=== PATIENT | male | born 1960 | race Caucasian/White ===

== ENCOUNTER 2025-01-23 13:25 | Emergency (ER) | payer SELFPAY ==
[2025-01-23] VITALS (54 sets, daily range): BP systolic 127–168; BP diastolic 84–108; PULSE 84–123; TEMP 36.8; O2SAT 88–100; BMI 27.4
--- NOTE | 2025-01-23 13:45 | ECG_ITS ---
The [facility] Test Date: 2025-01-23 Pat Name: TRU MILLER Department: Room: - Gender: Male Group Teacher: : 1960 Requested By: [id number] Order Number: [id number] Reading MD: MILES KIM M.D. Measurements Intervals [place] Rate: 112 P: 81 MA: 136 QRS: 13 QRSD: 122 T: 76 QT: 354 QTc: 421 Interpretive Statements 1120 Sinus tachycardia 2450 Right bundle branch block 9150 abnormal ECG No previous ECG available for comparison Electronically Signed On 01-23-2025 18:32:13 EDT by MILES KIM M.D.
--- NOTE | 2025-01-23 13:45 | CT_ITS ---
The [address] [address] Patient Name: TRU MILLER MRN: [facility]:[id number] date: 1960 Sex: M Assigned Patient Location: ER Current Patient Location: ER Accession/Order Number: [id number] Exam Date: 01/23/2025 14:40 Report Date: 01/23/2025 14:46 At the request of: TOD DONIS MD Procedure: CT cervical spine wo con CT BRAIN WITHOUT CONTRAST: CLINICAL HISTORY: seizure, head injury COMPARISON: None TECHNIQUE: Contiguous axial unenhanced images were obtained through the brain. This CT exam was performed using one or more following dose reduction techniques: Automated exposure control, adjustment of the mA and/or kV according to patient size, or use of iterative reconstruction technique. FINDINGS: There is no evidence of midline shift, intra or extra-axial fluid collection, hemorrhage or CT evidence of stroke. A partially calcified hyperdense extra-axial mass is seen involving the left anterior parafalcine region measuring approximately 3.0 x 1.9 x 3.8 cm. There is associated vasogenic edema involving the left frontal lobe no significant midline shift or transtentorial herniation. There is adjacent craniotomy changes. Posterior fossa appears unremarkable. Visualized intraorbital contents appear unremarkable. Visualized paranasal sinuses are clear. The surrounding soft tissues are normal. CT/CT cervical spine wo con IMPRESSION: A PARTIALLY CALCIFIED HYPERDENSE EXTRA-AXIAL MASS IS SEEN INVOLVING THE LEFT ANTERIOR PARAFALCINE REGION MEASURING 3.0 X 1.9 X 3.8 CM. THERE IS ASSOCIATED ADJACENT CRANIOTOMY CHANGES WELL VASOGENIC EDEMA INVOLVING THE LEFT FRONTAL LOBE. FINDING LIKELY REPRESENTS A MENINGIOMA BUT CORRELATION WITH PREVIOUSLY PRESUMED SURGICAL DIAGNOSIS GIVEN THE ADJACENT CRANIOTOMY CHANGES ARE RECOMMENDED. CT CERVICAL SPINE WITHOUT CONTRAST WITH 3D RECONSTRUCTIONS: COMPARISON: None TECHNIQUE: Spiral axial unenhanced images were obtained through the cervical spine. Sagittal, coronal and 3D volume-rendered reconstructions were also reviewed. This CT exam was performed using one or more following dose reduction techniques: Automated exposure control, adjustment of the mA and/or kV according to patient size, or use of iterative reconstruction technique. FINDINGS: No fracture. Vertebral body heights appear maintained. Mild endplate and facet joint degenerative changes without significant disc height loss. No prevertebral soft tissue swelling. Visualized lung apices are clear. IMPRESSION: NO CERVICAL SPINE FRACTURE Impression dictated by: Evans Walker Jr., D.O. 01/23/2025 2:46 PM Dictation Location: [place] [address] Electronically authenticated by: [id number] Y Date: 01/23/2025 14:46
--- NOTE | 2025-01-23 13:45 | CT_ITS ---
The [address] [address] Patient Name: TRU MILLER MRN: [facility]:[id number] date: 1960 Sex: M Assigned Patient Location: ER Current Patient Location: ER Accession/Order Number: [id number] Exam Date: 01/23/2025 14:40 Report Date: 01/23/2025 14:46 At the request of: TOD DONIS MD Procedure: CT cervical spine wo con CT BRAIN WITHOUT CONTRAST: CLINICAL HISTORY: seizure, head injury COMPARISON: None TECHNIQUE: Contiguous axial unenhanced images were obtained through the brain. This CT exam was performed using one or more following dose reduction techniques: Automated exposure control, adjustment of the mA and/or kV according to patient size, or use of iterative reconstruction technique. FINDINGS: There is no evidence of midline shift, intra or extra-axial fluid collection, hemorrhage or CT evidence of stroke. A partially calcified hyperdense extra-axial mass is seen involving the left anterior parafalcine region measuring approximately 3.0 x 1.9 x 3.8 cm. There is associated vasogenic edema involving the left frontal lobe no significant midline shift or transtentorial herniation. There is adjacent craniotomy changes. Posterior fossa appears unremarkable. Visualized intraorbital contents appear unremarkable. Visualized paranasal sinuses are clear. The surrounding soft tissues are normal. CT/CT head/brain wo con IMPRESSION: A PARTIALLY CALCIFIED HYPERDENSE EXTRA-AXIAL MASS IS SEEN INVOLVING THE LEFT ANTERIOR PARAFALCINE REGION MEASURING 3.0 X 1.9 X 3.8 CM. THERE IS ASSOCIATED ADJACENT CRANIOTOMY CHANGES WELL VASOGENIC EDEMA INVOLVING THE LEFT FRONTAL LOBE. FINDING LIKELY REPRESENTS A MENINGIOMA BUT CORRELATION WITH PREVIOUSLY PRESUMED SURGICAL DIAGNOSIS GIVEN THE ADJACENT CRANIOTOMY CHANGES ARE RECOMMENDED. CT CERVICAL SPINE WITHOUT CONTRAST WITH 3D RECONSTRUCTIONS: COMPARISON: None TECHNIQUE: Spiral axial unenhanced images were obtained through the cervical spine. Sagittal, coronal and 3D volume-rendered reconstructions were also reviewed. This CT exam was performed using one or more following dose reduction techniques: Automated exposure control, adjustment of the mA and/or kV according to patient size, or use of iterative reconstruction technique. FINDINGS: No fracture. Vertebral body heights appear maintained. Mild endplate and facet joint degenerative changes without significant disc height loss. No prevertebral soft tissue swelling. Visualized lung apices are clear. IMPRESSION: NO CERVICAL SPINE FRACTURE Impression dictated by: Evans Walker Jr., D.O. 01/23/2025 2:46 PM Dictation Location: [place] [address] Electronically authenticated by: [id number] Y Date: 01/23/2025 14:46
[2025-01-23 13:57] LABS: Hematocrit 48.2 % (42.0-54.0); Hemoglobin 15.9 g/dL (14.0-18.0); Immature Granulocytes Abs Auto 0.05 10^3/uL (0.00-0.03); Immature Granulocytes Pct Auto 0.6 % (0.0-0.5); Lymphocytes Absolute Auto 1.9 10^3/uL (1.2-3.8); Mean Corpuscular HGB Conc 33.0 g/dL (29.9-35.2); Mean Corpuscular Hemoglobin 29.9 pg (25.9-34.0); Mean Corpuscular Volume 90.6 fL (80.0-94.0); Platelet Count 198 10^3/uL (150-450); Red Blood Count 5.32 10^6/uL (4.70-6.10); White Blood Count 8.3 10^3/uL (4.0-11.0)
[2025-01-23 14:12] LABS: Anion Gap 18.2; Blood Urea Nitrogen 16.0 mg/dL (7.0-18.0); Calcium 9.3 mg/dL (8.5-10.1); Carbon Dioxide 24.9 mmol/L (21.0-32.0); Chloride 99 mmol/L (98-107); Estimated GFR (African America >60 (>=60 mL/min/1.73m^2); Estimated GFR (Non-African Ame >60 (>=60 mL/min/1.73m^2); Glucose 276 mg/dL (74-106); Potassium 4.1 mmol/L (3.5-5.1); Sodium 138 mmol/L (136-145)
--- NOTE | 2025-01-23 14:45 | XR_ITS ---
The [address] [address] Patient Name: TUR MILLER MRN: [id number] date: 1960 Sex: M Assigned Patient Location: ER Current Patient Location: ED.MAIN Accession/Order Number: [id number] Exam Date: 01/23/2025 15:39 Report Date: 01/23/2025 15:40 At the request of: TOD DONIS MD Procedure: XR shoulder RT min 2V RIGHT SHOULDER - - 3 views CLINICAL HISTORY: pain, fall COMPARISON: None FINDINGS: There is a mildly displaced fracture involving the distal aspect of the right clavicle. Glenohumeral joint appears intact. XR/XR shoulder RT min 2V IMPRESSION: MILDLY DISPLACED FRACTURE DISTAL ASPECT OF THE RIGHT CLAVICLE. Impression dictated by: Evans Walker Jr., DArabellaOArabella 01/23/2025 3:40 PM Dictation Location: [place] [address] Electronically authenticated by: [id number] Y Date: 01/23/2025 15:40
--- NOTE | 2025-01-23 14:45 | XR_ITS ---
The [place] [id number] Patient Name: TRU MILLER MRN: [id number] date: 1960 Sex: M Assigned Patient Location: ER Current Patient Location: ED.MAIN Accession/Order Number: [id number] Exam Date: 01/23/2025 15:37 Report Date: 01/23/2025 15:39 At the request of: TOD DONIS MD Procedure: XR chest 1V Single view chest: CLINICAL HISTORY: shortness of breath COMPARISON: None FINDINGS: The heart is normal in size. The lungs demonstrate mild interstitial changes without consolidation. The pulmonary vasculature is normal. Mediastinum and hilar regions are unremarkable. No pleural effusions are seen. Visualized bones are intact. XR/XR chest 1V IMPRESSION: MILD INTERSTITIAL CHANGES. NO CONSOLIDATION TO SUGGEST PNEUMONIA. Impression dictated by: Evans Walker Jr., D.O. 01/23/2025 3:39 PM Dictation Location: [place] [address] Electronically authenticated by: [id number] Y Date: 01/23/2025 15:39
[2025-01-23] MEDS: METHYLPREDNISOLONE SOD SUCC PF 125 MG/2 ML VIAL IVP (14:50)
[2025-01-23] MEDS: IPRATROPIUM/ALBUTEROL SULFATE 3 ML AMPUL.NEB IH (14:57)
--- NOTE | 2025-01-23 16:24 | ED.GENADUL1 ---
HPI HPI - General Adult General Chief complaint: Seizure Stated complaint: SEIZURE Time Seen by Provider: 01/23/25 13:44 Source: patient Mode of arrival: ambulance Limitations: no limitations History of Present Illness HPI narrative: 64-year-old male to the emergency department with chief complaint of seizure. Patient reports that he was having a normal day and was at work at [employer]. He had no preceding symptoms but was witnessed to have a generalized seizure by his coworkers. He did hit the ground. He reports pain in his right shoulder. He did hit his head. No blood thinners. Patient reports that he has a history of a brain mass status postcraniotomy and excision. This was in 2019 at [facility]. He has otherwise been at his baseline health. He denies any vision changes, numbness, weakness, tingling, difficulty walking. Related Data Home Medications �Medication �Instructions �Recorded �Confirmed No Known Home Medications 01/23/25 01/23/25 Allergies Allergy/AdvReac Type Severity Reaction Status Date / Time Unable to Assess Allergy Verified 01/23/25 13:34 Review of Systems ROS Status of ROS 10 or more systems reviewed and unremarkable except as noted in history and below PFSH PFSH Social History Little interest or pleasure in doing things: not at all Feeling down, depressed, or hopeless: not at all Exam Narrative Exam Narrative: Primary Survey Airway Intact Lung sounds clear and equal bilaterally Pulses full and equal to femoral, radial, and dorsalis pedis bilaterally Heart regular rate and rhythm Skin warm, dry, pink GCS 15 Movement and sensation intact to all extremities. Patient Fully Exposed. Tenderness over the right shoulder with some appreciable swelling. Abrasion to the right frontal region. Secondary Survey General: GCS 15; Alert HEENT: Head atraumatic; Facial bones stable; Eyes normal inspection, Pupils round, 4-2mm blt; No evidence of oropharyngeal trauma; No blood in the nares or septal hematoma; Tympanic Membranes intact, no hemotympanum or drainage Neck: Normal inspection; no midline cervical tenderness; No tracheal deviation; No JVD Resp: Normal breath sounds, no wheeze or crackles; No chest wall tenderness, crepitus, or subcutaneous emphysema; No visible evidence of chest wall trauma; Chest rise symmetric; No respiratory distress Heart: Heart rate and rhythm regular; Carotid, radial, femoral, dorsalis pedis pulses +2 and equal bilaterally; No Murmurs Abdomen: Soft; Non-tender No ecchymosis or visible wounds to abdominal wall; No distention, guarding, rigidity, or rebound; Pelvis stable, no pain on compression MSK: Right shoulder/clavicle tenderness, otherwise all major joints with normal ROM. No deformities. No bony tenderness. No tenderness or step-offs to palpation of thoracic or lumbar spine; No ecchymosis or wounds to upper or lower back Neuro: Alert and oriented; Sensation intact and symmetric bilaterally; muscle strengths symmetric bilaterally in the upper and lower extremities. Skin: Color normal; No rash; Warm; Dry Constitutional Vital Signs, click to edit/add: Last Vital Signs Temp 98.2 F 01/23/25 13:28 Pulse 100 H 01/23/25 15:20 Resp 24 H 01/23/25 15:20 BP 150/93 H 01/23/25 15:00 Pulse Ox 94 L 01/23/25 15:20 O2 Del Method Nasal Cannula 01/23/25 14:57 O2 Flow Rate 1.5 01/23/25 14:57 Course Vital Signs Vital signs: Vital Signs Temperature 98.2 F 01/23/25 13:28 Pulse Rate 123 H 01/23/25 13:28 Respiratory Rate 24 H 01/23/25 13:28 Blood Pressure 150/101 H 01/23/25 13:28 Pulse Oximetry 94 L 01/23/25 13:28 Temperature 98.2 F 01/23/25 13:28 Pulse Rate 100 H 01/23/25 15:20 Respiratory Rate 24 H 01/23/25 15:20 Blood Pressure 150/93 H 01/23/25 15:00 Pulse Oximetry 94 L 01/23/25 15:20 Oxygen Delivery Method Nasal Cannula 01/23/25 14:57 Oxygen Delivery Flow Rate 1.5 01/23/25 14:57 Medical Decision Making MDM Narrative Medical decision making narrative: 64-year-old male to the emergency department with chief complaint of seizure. He is hypoxic, otherwise stable vitals. The patient is afebrile. He is mildly tachycardic. CT head and cervical spine were ordered. X-ray imaging of the shoulder and chest. Basic labs. Patient agrees with this plan. He does have a distal clavicle fracture. He is placed in a sling. Pain medication was given. CT head: He does have an extra-axial mass with some vasogenic edema. CT cervical spine without acute findings. Chest x-ray without acute findings. Lab work was reviewed and noted. Patient remained at 1.5 L nasal cannula. He does have a history of COPD. He reports mild cough and some shortness of breath recently. DuoNeb treatment was given and he improved. He remains on the 1.5 L. Sign Medrol given. Likely mild COPD exacerbation. Case was discussed with Dr. Vigil at [facility]. He recommended transfer for EEG and MRI. Case was discussed with the hospitalist. Patient was accepted to [facility]. Any given at her request. Medical Records Medical records reviewed: Yes I reviewed the patient's medical records Lab Data Lab results reviewed: Yes I reviewed the patient's lab results Labs: Lab Results 01/23/25 Range/Units 13:36 WBC 8.3 (4.0-11.0) 10^3/uL RBC 5.32 (4.70-6.10) 10^6/uL Hgb 15.9 (14.0-18.0) g/dL Hct 48.2 (42.0-54.0) % MCV 90.6 (80.0-94.0) fL MCH 29.9 (25.9-34.0) pg MCHC 33.0 (29.9-35.2) g/dL RDW 12.6 (11.0-15.0) % Plt Count 198 (150-450) 10^3/uL MPV 11.0 (9.5-13.5) fL Neut % (Auto) 69.1 (43.0-75.0) % Lymph % (Auto) 22.3 (20.5-60.0) % [place] % (Auto) 6.9 (1.7-12.0) % Eos % (Auto) 0.6 L (0.9-7.0) % Baso % (Auto) 0.5 (0.2-2.0) % Neut # (Auto) 5.8 (1.4-6.5) 10^3/uL Lymph # (Auto) 1.9 (1.2-3.8) 10^3/uL [place] # (Auto) 0.6 (0.3-0.8) 10^3/uL Eos # (Auto) 0.1 (0.0-0.7) 10^3/uL Baso # (Auto) 0.0 (0.0-0.1) 10^3/uL Abs Immat Gran (auto) 0.05 H (0.00-0.03) 10^3/uL Imm/Tot Granulo (auto) 0.6 H (0.0-0.5) % Sodium 138 (136-145) mmol/L Potassium 4.1 (3.5-5.1) mmol/L Chloride 99 (98-107) mmol/L Carbon Dioxide 24.9 (21.0-32.0) mmol/L Anion Gap 18.2 BUN 16.0 (7.0-18.0) mg/dL Creatinine 1.13 (0.70-1.30) mg/dL Est GFR ( Amer) >60 (>=60 mL/min/1.73m^2) Est GFR (Non-Af Amer) >60 (>=60 mL/min/1.73m^2) BUN/Creatinine Ratio 14.2 Glucose 276 H (74-106) mg/dL Calcium 9.3 (8.5-10.1) mg/dL Troponin I High Sens 5.4 (4.0-76.1) pg/mL Imaging Data CT scan - head: Attestation: I have reviewed the pertinent imaging results. Radiologist's impression: ITS Impressions Cervical Spine CT 01/23/25 13:45 IMPRESSION: A PARTIALLY CALCIFIED HYPERDENSE EXTRA-AXIAL MASS IS SEEN INVOLVING THE LEFT ANTERIOR PARAFALCINE REGION MEASURING 3.0 X 1.9 X 3.8 CM. THERE IS ASSOCIATED ADJACENT CRANIOTOMY CHANGES WELL VASOGENIC EDEMA INVOLVING THE LEFT FRONTAL LOBE. FINDING LIKELY REPRESENTS A MENINGIOMA BUT CORRELATION WITH PREVIOUSLY PRESUMED SURGICAL DIAGNOSIS GIVEN THE ADJACENT CRANIOTOMY CHANGES ARE RECOMMENDED. CT CERVICAL SPINE WITHOUT CONTRAST WITH 3D RECONSTRUCTIONS: COMPARISON: None TECHNIQUE: Spiral axial unenhanced images were obtained through the cervical spine. Sagittal, coronal and 3D volume-rendered reconstructions were also reviewed. This CT exam was performed using one or more following dose reduction techniques: Automated exposure control, adjustment of the mA and/or kV according to patient size, or use of iterative reconstruction technique. FINDINGS: No fracture. Vertebral body heights appear maintained. Mild endplate and facet joint degenerative changes without significant disc height loss. No prevertebral soft tissue swelling. Visualized lung apices are clear. IMPRESSION: NO CERVICAL SPINE FRACTURE Impression dictated by: Evans Walker Jr., D.O. 01/23/2025 2:46 PM Dictation Location: [employer] Electronically authenticated by: [id number] Y Date: 01/23/2025 14:[address] 01/23/25 13:45 IMPRESSION: A PARTIALLY CALCIFIED HYPERDENSE EXTRA-AXIAL MASS IS SEEN INVOLVING THE LEFT ANTERIOR PARAFALCINE REGION MEASURING 3.0 X 1.9 X 3.8 CM. THERE IS ASSOCIATED ADJACENT CRANIOTOMY CHANGES WELL VASOGENIC EDEMA INVOLVING THE LEFT FRONTAL LOBE. FINDING LIKELY REPRESENTS A MENINGIOMA BUT CORRELATION WITH PREVIOUSLY PRESUMED SURGICAL DIAGNOSIS GIVEN THE ADJACENT CRANIOTOMY CHANGES ARE RECOMMENDED. CT CERVICAL SPINE WITHOUT CONTRAST WITH 3D RECONSTRUCTIONS: COMPARISON: None TECHNIQUE: Spiral axial unenhanced images were obtained through the cervical spine. Sagittal, coronal and 3D volume-rendered reconstructions were also reviewed. This CT exam was performed using one or more following dose reduction techniques: Automated exposure control, adjustment of the mA and/or kV according to patient size, or use of iterative reconstruction technique. FINDINGS: No fracture. Vertebral body heights appear maintained. Mild endplate and facet joint degenerative changes without significant disc height loss. No prevertebral soft tissue swelling. Visualized lung apices are clear. IMPRESSION: NO CERVICAL SPINE FRACTURE Impression dictated by: Evans Walker Jr., D.O. 01/23/2025 2:46 PM Dictation Location: [place] Electronically authenticated by: [id number] Y Date: 01/23/2025 14:46 Chest X-Ray 01/23/25 14:45 IMPRESSION: MILD INTERSTITIAL CHANGES. NO CONSOLIDATION TO SUGGEST PNEUMONIA. Impression dictated by: Evans Walker Jr., D.O. 01/23/2025 3:39 PM Dictation Location: [employer] Electronically authenticated by: [id number] Y Date: 01/23/2025 15:39 Shoulder X-Ray 01/23/25 14:45 IMPRESSION: MILDLY DISPLACED FRACTURE DISTAL ASPECT OF THE RIGHT CLAVICLE. Impression dictated by: Evans Walker Jr., D.O. 01/23/2025 3:40 PM Dictation Location: [employer] Electronically authenticated by: [id number] Y Date: 01/23/2025 15:40 ECG Data Attestation: I personally reviewed and interpreted this ECG as follows: (Sinus tachycardia rate of 112. No STEMI. Normal QTc of 421.) Critical Care Time Critical Care Time Total Critical Care Time: 35 Attestation: Critical Care Procedure Note Authorized and Performed by: Maxwell Worthington DO Total critical care time: 35 min Due to a high probability of clinically significant, life threatening deterioration, the patient required my highest level of preparedness to intervene emergently and I personally spent this critical care time directly and personally managing the patient. This critical care time included obtaining a history; examining the patient; pulse oximetry; ordering and review of studies; arranging urgent treatment with development of a management plan; evaluation of patient's response to treatment; frequent reassessment; and, discussions with other providers. This critical care time was performed to assess and manage the high probability of imminent, life-threatening deterioration that could result in multi-organ failure. It was exclusive of separately billable procedures and treating other patients and teaching time. Please see MDM section and the rest of the note for further information on patient assessment and treatment. Discharge Plan Discharge Chief Complaint: Seizure Clinical Impression: Generalized seizure, Clavicle fracture, COPD with acute exacerbation, Acute and chronic respiratory failure with hypoxia, Meningioma Patient Disposition: [facility] Time of Disposition Decision: 17:20 Discharge Location: [facility] Condition: Fair Mode of Transportation: Private Vehicle
[2025-01-23 17:13] LABS: Glucose Urine UA >=1000 mg/dL (NEGATIVE)
[2025-01-23] MEDS: OXYCODONE HCL/ACETAMINOPHEN 5MG/325MG 1 TAB PO (17:21)
[2025-01-23 17:32] LABS: Cast Seen? NONE SEEN #/LPF (NONE SEEN); Crystals Seen? None Seen #/HPF (None Seen); Urine Culture Indicated NO
--- NOTE | 2025-01-23 22:02 | PC.NURSE ---
nursing report called to Zainab RN at [facility]. all questions answered. pt transported via [facility], pt denies needs prior to transport. pt belongings sent with EMS.
== END 2025-01-23 22:03 | disposition short-term general hospital (02) ==
PROVIDERS: Emergency Provider Student in an Organized Health Care Education/Training Program; PCP Nurse Practitioner
DX: R56.9 Unspecified convulsions (principal); S42.031A Displaced fracture of lateral end of right clavicle, initial encounter for closed fracture; W19.XXXA Unspecified fall, initial encounter; J44.1 Chronic obstructive pulmonary disease with (acute) exacerbation; J96.21 Acute and chronic respiratory failure with hypoxia; D32.0 Benign neoplasm of cerebral meninges
CPT/HCPCS: 36415; 70450; 71045; 72125; 73030; 80048; 81001; 84484; 85025; 93005; 94640; 96365; 96375; 99285; J1953; J2919